=== PATIENT | female | born 1975 | race Caucasian/White ===

== ENCOUNTER 2016-05-29 12:31 | Day surgery (SDC) | payer OTHER ==
[~2016-05-29] VITALS: Ht 152.4 cm; Wt 70.2 kg
[~2016-05-29 12:31] MED LIST: FLEXERIL10 MG PO; NAPROSYN500 MG PO; ZYBAN 150 MG T150 MG PO
[2016-05-29 13:18] VITALS: BP 127/75
[2016-05-29 13:31] LABS: BASOPHIL COUNT 0.1 K/uL (0-0.1); EOSINOPHIL (%) 1.5 % (0-5); EOSINOPHIL COUNT 0.1 K/uL (0-0.3); IMMATURE GRANULOCYTE (%) 0.2 % (0.0-0.7); INSTRUMENT ABS NEUTROPHIL CT 6.6 K/uL; LYMPHOCYTE COUNT 1.9 K/uL (1.0-2.8); MCH 28.1 PG (29.0-34.0); MCHC 31.4 G/DL (30.0-36.0); MCV 89.3 FL (83-99); MEAN PLAT.VOLUME 10.8 uM^3 (9.5-12.4); MONOCYTE (%) 5.5 % (3-12); MONOCYTE COUNT 0.5 K/uL (0-0.8); NEUTROPHIL (%) 71.4 % (45-76); NEUTROPHIL COUNT 6.6 K/uL (1.8-6.4); PLATELET COUNT 393 K/uL (156-360); RBC DIS.WIDTH-CV 14.6 % (11.8-14.6); RBC DIS.WIDTH-SD 47.2 % (39-53); RED BLOOD COUNT 3.92 M/uL (3.80-5.20); WHITE BLOOD COUNT 9.2 K/uL (4.1-10.2)
[2016-05-29] MEDS ORDERED: HYDROCODON-ACE1 EAC7 PO (15:18)
[2016-05-29] MEDS ORDERED: IBUPROFEN800 MG PO (15:18)
[2016-05-29 16:40] VITALS: BP 160/76
[2016-05-29 17:20] VITALS: BP 167/77
== END 2016-05-29 17:20 | disposition home or self-care (01) ==
LOC: SDC 12:31
PROVIDERS: Obstetrics & Gynecology
DX: D06.9 Carcinoma in situ of cervix, unspecified (principal); N83.8 Other noninflammatory disorders of ovary, fallopian tube and broad ligament; Z30.2 Encounter for sterilization; E66.9 Obesity, unspecified; Z68.30 Body mass index [BMI] 30.0-30.9, adult; Z88.0 Allergy status to penicillin; Z88.6 Allergy status to analgesic agent; Z88.5 Allergy status to narcotic agent; Z82.49 Family history of ischemic heart disease and other diseases of the circulatory system
CPT/HCPCS: 84702; 85025; 86850; 86900; 86901; 88302; 88307; J1100; J1170; J1580; J1885; J2405; J3010; J7050